=== PATIENT | male | born 1965 | race Two or more races ===

== ENCOUNTER 2025-02-08 21:02 | Emergency (ER) | payer OTHER ==
[2025-02-08 21:08] VITALS: BMI 27.3
[2025-02-08] MEDS ORDERED: FAMOTIDINE 20 MG/50 ML IVPB 20 MG/50 ML MG IVPB ONE (22:10)
[2025-02-08] MEDS ORDERED: ACETAMINOPHEN INJECTION 100 ML ONE (22:10)
[2025-02-08] MEDS ORDERED: ONDANSETRON 4 MG/2 ML VIAL ONE (22:10)
[2025-02-08 22:12] LABS: ABSOLUTE IMMATURE GRANULOCYTES 0.09 x10^3/uL (0.0-0.031); BASOPHILS # 0.03 x10^3/uL (0.01-0.08); EOSINOPHIL % 0.0 % (0.8-7.0); EOSINOPHILS # 0.00 x10^3/uL (0.04-0.54); MCHC 32.4 g/dl (32.3-36.5); MEAN CELL VOLUME 84.3 fl (79.0-92.2); MEAN PLT VOLUME 10.0 fl (9.4-12.4); MONOCYTE # 1.19 x10^3/uL (0.30-0.82); MONOCYTE % 9.0 % (5.3-12.2); RDW 13.1 % (12.2-16.1)
[2025-02-08] MEDS: SODIUM CHLORIDE 1,000 ML IV STA (22:18)
[2025-02-08] MEDS: FAMOTIDINE 20 MG/50 ML IVPB 20 MG/50 ML MG IVPB ONE (22:19)
[2025-02-08] MEDS: ACETAMINOPHEN 1000 MG/100 ML BAG IVPB ONE (22:19)
[2025-02-08] MEDS: ONDANSETRON 4 MG/2 ML VIAL IVPUSH ONE (22:19)
[2025-02-08 22:38] LABS: CO2 24.0 mmol/L (21-32); GLUCOSE,RANDOM 127.0 mg/dL (74-106)
[2025-02-08 22:41] LABS: CREATININE 1.4 mg/dL (0.55-1.3); SGOT/AST 41.0 U/L (15-37); SGPT/ALT 42.0 U/L (13-61)
[2025-02-08 22:42] LABS: TOT PROT 6.6 g/dl (6.4-8.2)
[2025-02-08 22:43] LABS: INR 1.44 (0.83-1.09); PROTHROMBIN TIME (PATIENT) 15.7 SEC (9.7-13.0)
[2025-02-08 22:44] LABS: ALK PHOS 100.0 U/L (45-117)
[2025-02-08 22:46] LABS: ACTIVATED PTT 32.6 SECONDS (25.2-36.5)
[2025-02-08] MEDS: LACTATED RINGERS SOLUTION 1000 ML INFUS.BAG IV ONE (23:08)
[2025-02-09 00:32] LABS: HCV DIAGNOSTIC IN-HOUSE W/RFLX NON-REACTIVE (NONREACTIVE)
[2025-02-09 00:37] LABS: URINE APPEARANCE CLEAR; URINE BILIRUBIN NEGATIVE (NEGATIVE); URINE COLOR YELLOW; URINE GLUCOSE (UA) NEGATIVE (NEGATIVE); URINE KETONE NEGATIVE (NEGATIVE); URINE LEUK ESTERASE NEGATIVE (NEGATIVE); URINE NITRITE NEGATIVE (NEGATIVE); URINE PROTEIN NEGATIVE (NEGATIVE); URINE UROBILINOGEN 1.0 mg/dL (0.2-1.0)
[2025-02-09] MEDS ORDERED: AZITHROMYCIN IVPB 500 MG/250 ML BAG IVPB ONE (00:40)
[2025-02-09] MEDS ORDERED: CEFTRIAXONE 1 GM/50 ML BAG ONE (00:40)
[2025-02-09] MEDS: CEFTRIAXONE 1,000 MG in DEXTROSE 5%-WATER - 50 ML IVPB ONE (00:50)
[2025-02-09] MEDS: AZITHROMYCIN IVPB 500 MG in DEXTROSE 5%-WATER - 250 ML IVPB ONE (00:52)
[2025-02-09] MEDS ORDERED: AZITHROMYCIN 250 MG TABLET ONE (00:55)
[2025-02-09] MEDS: AZITHROMYCIN 500 MG TABLET PO ONE (00:57)
[2025-02-09 01:09] VITALS: BP 118/70; PULSE 72; RESP 19; TEMP 98
[2025-02-09 18:34] LABS: HIV INTERPRETATION NEGATIVE (NEGATIVE)
== END 2025-02-09 01:38 | disposition home or self-care (01) ==
LOC: JER 21:02
PROC: 3E033GC Introduction of Other Therapeutic Substance into Peripheral Vein, Percutaneous Approach (ICD-10-PCS; principal; 2025-02-08)
PROC: 3E033NZ Introduction of Analgesics, Hypnotics, Sedatives into Peripheral Vein, Percutaneous Approach (ICD-10-PCS; 2025-02-08)
PROC: 3E033GC Introduction of Other Therapeutic Substance into Peripheral Vein, Percutaneous Approach (ICD-10-PCS; 2025-02-08)
PROC: 3E03329 Introduction of Other Anti-infective into Peripheral Vein, Percutaneous Approach (ICD-10-PCS; 2025-02-09)
DX: J18.9 Pneumonia, unspecified organism (principal); R50.9 Fever, unspecified; R11.2 Nausea with vomiting, unspecified; R10.13 Epigastric pain
CPT/HCPCS: 0241U-QW; 36415; 71046-TC-FY; 74177-TC; 80053; 81003; 83605; 83690; 84484; 85025; 85610; 85730; 86803; 87040; 87086; 87389; 87899; 93005; 93010; 96365; 96367; 96375; 99285-25